=== PATIENT | female | born 1980 | race Caucasian/White ===

== ENCOUNTER → 2020-03-26 | Day surgery (SDC) | payer OTHER ==
[~2020-03-26] MED LIST: ADVIL200 M1 PO; NORCO 5-325 TA1 EACH PO; ZOFRAN4 M1 PO; ZYRTEC10 M3 PO
[2020-03-26 11:28] LABS: HCG (URINE) SCREEN NEGATIVE (NEGATIVE)
[2020-03-26 11:47] LABS: HCT 39.7 % (37.0-47.0); HGB 12.9 g/dl (12.5-16.0); MCH 30.2 pg (25.0-31.0); MCHC 32.5 g/dL (32.0-36.0); MPV 10.4 fL (6.0-9.5); RBC 4.27 M/uL (4.20-5.40); RDW 12.8 % (11.5-14.0); WBC 4.5 K/uL (4.0-10.5)
== END | disposition home or self-care (01) ==
LOC: FAS 10:30
PROVIDERS: Legal Medicine
DX: S52.572A Other intraarticular fracture of lower end of left radius, initial encounter for closed fracture (principal); K21.9 Gastro-esophageal reflux disease without esophagitis; Z91.048 Other nonmedicinal substance allergy status; Z98.890 Other specified postprocedural states; Z20.822 Contact with and (suspected) exposure to COVID-19; W18.30XA Fall on same level, unspecified, initial encounter; Y93.89 Activity, other specified
CPT/HCPCS: 36415; 73100; 84703; C1713; J0690; J1100; J1170; J1885; J2250; J2405; J2704; J2795; J3010; J7120; U0002